=== PATIENT | male | born 1955 | race Two or more races ===

== ENCOUNTER 2024-04-30 19:00 | Inpatient (IN) ==
[2024-04-30 19:44] LABS: ABS Basophils 0.1 10^3/uL (0.0-0.1); ABS Eosinophils 0.1 10^3/uL (0.0-0.5); ABS Neutrophils 17.1 10^3/uL (1.5-7.6); ABS Nucleated RBC 0.01 10^3/ul; Eosinophil % 0.5 %; Hematocrit 41.4 % (38-53); Hemoglobin 13.8 g/dL (13.2-16.3); Lymphocyte % 5.3 %; Mean Corpuscular Hemoglobin 28.1 pg (27-33); Mean Corpuscular Hgb Conc 33.4 g/dL (31-36); Mean Corpuscular Volume 84.2 fL (80-97); Mean Platelet Volume 7.1 fL (7.5-11.2); Platelet Count 351 10^3/uL (150-450); Red Blood Count 4.92 10^6/uL (4.06-5.63); Red Cell Distribution Width 14.6 % (12-17); White Blood Count 19.3 10^3/uL (3.6-10.2)
[2024-04-30 20:13] LABS: Albumin 3.9 g/dL (3.2-5.2); Albumin/Globulin Ratio 1.4 (1-3); C Reactive Protein 20.72 mg/L (<8.01); Calcium 8.9 mg/dL (8.6-10.3); Creatinine, Serum 4.04 mg/dL (0.67-1.17); Globulin 2.8 g/dL (2-4); Potassium 4.7 mmol/L (3.5-5.0); Total Bilirubin 1.1 mg/dL (0.2-1.0); Total Protein 6.7 g/dL (6.4-8.9); eGFR CKD-EPI 15.5 (>60)
[2024-04-30] MEDS: Piperacillin/Tazobac 3.375 BAG 3.375 GM/100 ML BAG IV ONE (20:53)
[2024-04-30] MEDS: Lactated Ringers 1000 ml BAG 1,000 ML IV ONE ×2 (20:54)
[2024-04-30] MEDS: Ondansetron 4 mg VIAL 2 MG/ML 2 ml VIAL IV ONE (21:05)
[2024-04-30 21:15] LABS: High Sensitivity Troponin 1 Hr 10 pg/mL (<20)
[2024-04-30] MEDS: Acetaminophen IV 1 GM/100ML 1,000 MG/100 ML BAG IV ONE (21:31)
[2024-04-30] MEDS: Vancomycin 1,500 MG in NS 0.9% 250 ml 250 ML IVPB ONE (22:06)
[2024-04-30] MEDS: Morphine 4 MG/ML VIAL (1 ml) IV ONE (23:16)
[2024-05-01] MEDS ORDERED: Piperacillin/Tazobac 3.375 BAG 3.375 GM/100 ML BAG IV ONE (00:11)
[2024-05-01] MEDS: ZOSYN 3.375 GM Q12H per EXTENDED INFUSION IV SCH ×2 (00:18→13:07)
[2024-05-01] MEDS ORDERED: Zosyn per Pharmacy NOTE FOLLOW UP SCH (01:00)
[2024-05-01] MEDS: Pantoprazole VIAL 40 MG VIAL IV SCH (01:55)
[2024-05-01] MEDS: Ondansetron 4 mg VIAL 2 MG/ML 2 ml VIAL IV PRN (01:57)
[2024-05-01] MEDS: Sucralfate 1 gm SUSP 1 GM/10 ML UDC PO ONE (01:57)
[2024-05-01] MEDS: Lactated Ringers 1000 ml BAG 1,000 ML IV SCH (01:57)
[2024-05-01] MEDS: Morphine 2 MG/ML SYRINGE IV PRN ×2 (01:57→10:55)
[2024-05-01] MEDS ORDERED: Dextrose 50% Syringe 50 ml 25 GM/50 ML SYRINGE IV PUSH PRN (02:13)
[2024-05-01 03:06] LABS: Albumin 3.4 g/dL (3.2-5.2); Albumin/Globulin Ratio 1.4 (1-3); Calcium 8.4 mg/dL (8.6-10.3); Creatinine, Serum 3.29 mg/dL (0.67-1.17); Globulin 2.5 g/dL (2-4); Potassium 3.9 mmol/L (3.5-5.0); Total Bilirubin 1.4 mg/dL (0.2-1.0); Total Protein 5.9 g/dL (6.4-8.9); eGFR CKD-EPI 19.9 (>60)
[2024-05-01] MEDS: Morphine 2 MG/ML SYRINGE IV ONE (04:23)
[2024-05-01] MEDS: Al Hydrox/Mg Hydrox/Simet LIQ 30 ML UDC PO ONE (04:24)
[2024-05-01 07:16] LABS: Urine Appearance Turbid; Urine Bilirubin Negative (Negative); Urine Blood 1+ (Negative); Urine Color Light-Yellow; Urine Glucose 1+ (>=70 mg/dL) (Negative); Urine Ketones Trace (Negative); Urine Nitrite Negative (Negative); Urine Protein Trace (Negative); Urine Specific Gravity 1.018 (1.002-1.030); Urine Urobilinogen Negative (Negative)
[2024-05-01 07:27] LABS: Urine Bacteria Absent /HPF (Absent); Urine Red Blood Cell 1+(3-5/hpf) /HPF (0-Trace); Urine Squamous Epithelial Cell Present /HPF (Absent); Urine White Blood Cell 3+(>20/hpf) /HPF (0-Trace)
[2024-05-01 09:16] LABS: ABS Basophils 0.1 10^3/uL (0.0-0.1); ABS Eosinophils 0.1 10^3/uL (0.0-0.5); ABS Lymphocytes 1.4 10^3/uL (1.0-4.8); ABS Neutrophils 14.6 10^3/uL (1.5-7.6); Eosinophil % 0.7 %; Hematocrit 36.3 % (38-53); Hemoglobin 12.3 g/dL (13.2-16.3); Lymphocyte % 8.1 %; Mean Corpuscular Hemoglobin 28.2 pg (27-33); Mean Corpuscular Hgb Conc 33.9 g/dL (31-36); Mean Corpuscular Volume 83.3 fL (80-97); Mean Platelet Volume 6.8 fL (7.5-11.2); Platelet Count 230 10^3/uL (150-450); Red Blood Count 4.36 10^6/uL (4.06-5.63); Red Cell Distribution Width 14.2 % (12-17); White Blood Count 17.2 10^3/uL (3.6-10.2)
[2024-05-01 09:58] LABS: Albumin 3.2 g/dL (3.2-5.2); Albumin/Globulin Ratio 1.4 (1-3); Calcium 8.1 mg/dL (8.6-10.3); Creatinine, Serum 2.77 mg/dL (0.67-1.17); Globulin 2.3 g/dL (2-4); Total Bilirubin 1.2 mg/dL (0.2-1.0); Total Protein 5.5 g/dL (6.4-8.9); eGFR CKD-EPI 24.4 (>60)
[2024-05-01] MEDS: NS 0.9% 1000 ml BAG 1,000 ML IV SCH (10:51)
[2024-05-01] MEDS: HYDROmorphone 0.5 MG/0.5 ML SYRINGE IV SLOW PU PRN (18:07)
[2024-05-01] MEDS: HYDROmorphone 0.5 MG/0.5 ML SYRINGE IV SLOW PU ONE (21:07)
[2024-05-02 06:56] LABS: ABS Eosinophils 0.2 10^3/uL (0.0-0.5); ABS Lymphocytes 0.9 10^3/uL (1.0-4.8); ABS Monocytes 1.4 10^3/uL (0.0-1.1); ABS Neutrophils 14.6 10^3/uL (1.5-7.6); Eosinophil % 1.3 %; Hematocrit 34.3 % (38-53); Hemoglobin 11.8 g/dL (13.2-16.3); Lymphocyte % 5.4 %; Mean Corpuscular Hemoglobin 28.7 pg (27-33); Mean Corpuscular Hgb Conc 34.3 g/dL (31-36); Mean Corpuscular Volume 83.7 fL (80-97); Mean Platelet Volume 6.9 fL (7.5-11.2); Platelet Count 188 10^3/uL (150-450); Red Cell Distribution Width 14.5 % (12-17); White Blood Count 17.2 10^3/uL (3.6-10.2)
[2024-05-02 07:06] LABS: Calcium 7.4 mg/dL (8.6-10.3); Creatinine, Serum 1.62 mg/dL (0.67-1.17); Potassium 3.6 mmol/L (3.5-5.0); eGFR CKD-EPI 46.5 (>60)
[2024-05-02 08:19] LABS: Albumin 2.9 g/dL (3.2-5.2); Albumin/Globulin Ratio 1.3 (1-3); Direct Bilirubin 0.4 mg/dL (0.03-0.18); Globulin 2.2 g/dL (2-4); Indirect Bilirubin 0.9 mg/dL (0.3-1.0); Magnesium 1.2 mg/dL (1.9-2.7); Total Bilirubin 1.3 mg/dL (0.2-1.0); Total Protein 5.1 g/dL (6.4-8.9)
[2024-05-02] MEDS: Magnesium Sulf 4 GM/100 ML IV 4,000 MG/100 ML BAG IVPB ONE (11:11)
[2024-05-02] MEDS: KCL 20 MEQ/100 ML IVPREMIX 20 MEQ/100 ML BAG IV SCH (11:12)
[2024-05-02] MEDS: Heparin 5000 UNITS/ML 1 mL VIAL SUBCUT SCH (19:55)
[2024-05-03] MEDS: Lidocaine 2% JELLY 6 ML Topical TOPICAL ONE (04:28)
[2024-05-03 08:18] LABS: ABS Basophils 0.1 10^3/uL (0.0-0.1); ABS Eosinophils 0.6 10^3/uL (0.0-0.5); ABS Lymphocytes 1.1 10^3/uL (1.0-4.8); ABS Neutrophils 11.6 10^3/uL (1.5-7.6); Eosinophil % 4.2 %; Hematocrit 35.5 % (38-53); Lymphocyte % 7.7 %; Mean Corpuscular Hemoglobin 28.4 pg (27-33); Mean Corpuscular Hgb Conc 33.8 g/dL (31-36); Mean Corpuscular Volume 84.2 fL (80-97); Mean Platelet Volume 6.8 fL (7.5-11.2); Platelet Count 197 10^3/uL (150-450); Red Blood Count 4.21 10^6/uL (4.06-5.63); Red Cell Distribution Width 14.5 % (12-17); White Blood Count 14.3 10^3/uL (3.6-10.2)
[2024-05-03 09:12] LABS: Calcium 7.8 mg/dL (8.6-10.3); Creatinine, Serum 1.08 mg/dL (0.67-1.17); Potassium 3.7 mmol/L (3.5-5.0); eGFR CKD-EPI 75.7 (>60)
[2024-05-03] MEDS ORDERED: Pneumococcal 20-Valent Conj 0.5 ML SYR Vaccine IM ONE (10:00)
[2024-05-03] MEDS ORDERED: Influenza Vaccine *TRI* 2024-25* 0.5 ML SYRINGE IM ONE (10:00)
[2024-05-03] MEDS ORDERED: Propofol 10 MG/ML 20 ML BTL ONE (14:17)
[2024-05-03] MEDS ORDERED: Rocuronium 50 mg VIAL 10 mg/ml 5 ml VIAL (50 mg) ONE (14:17)
[2024-05-03] MEDS ORDERED: Lidocaine 2% PF 5 ML VIAL ONE (14:18)
[2024-05-03] MEDS ORDERED: fentaNYL 100 mcg/2 ml 50 MCG/ML VIAL ONE ×4 (14:20→17:26)
[2024-05-03] MEDS ORDERED: Midazolam 2 mg/2 ml VIAL 1 mg/ml 2 ml VIAL (2 mg) ONE ×2 (14:20→15:39)
[2024-05-03] MEDS ORDERED: Bupivacaine 0.25% EPI 200,000 30 ML SDV ONE (15:09)
[2024-05-03] MEDS ORDERED: Dexamethasone IV 4 MG/ML VIAL 1 ml VIAL ONE (15:44)
[2024-05-03] MEDS ORDERED: Ondansetron 4 mg VIAL 2 MG/ML 2 ml VIAL ONE (15:45)
[2024-05-03] MEDS ORDERED: HYDROmorphone 0.5 MG/0.5 ML SYRINGE ONE (16:03)
[2024-05-03] MEDS ORDERED: Phenylephrine 40 mcg/mL 10mL (400mcg) SYRINGE ONE (16:12)
[2024-05-04 06:53] LABS: ABS Lymphocytes 0.4 10^3/uL (1.0-4.8); ABS Monocytes 0.7 10^3/uL (0.0-1.1); ABS Neutrophils 12.6 10^3/uL (1.5-7.6); Hematocrit 34.4 % (38-53); Hemoglobin 11.7 g/dL (13.2-16.3); Lymphocyte % 2.9 %; Mean Corpuscular Hemoglobin 28.6 pg (27-33); Mean Corpuscular Volume 84.1 fL (80-97); Platelet Count 209 10^3/uL (150-450); Red Cell Distribution Width 14.4 % (12-17); White Blood Count 13.8 10^3/uL (3.6-10.2)
[2024-05-04 07:28] LABS: Albumin 2.6 g/dL (3.2-5.2); Albumin/Globulin Ratio 1.2 (1-3); Calcium 7.6 mg/dL (8.6-10.3); Creatinine, Serum 0.93 mg/dL (0.67-1.17); Globulin 2.2 g/dL (2-4); Magnesium 1.4 mg/dL (1.9-2.7); Potassium 3.9 mmol/L (3.5-5.0); Total Bilirubin 0.8 mg/dL (0.2-1.0); Total Protein 4.8 g/dL (6.4-8.9); eGFR CKD-EPI 90.6 (>60)
[2024-05-04] MEDS: Magnesium Sulf 4 GM/100 ML IV 4,000 MG/100 ML BAG IVPB ONE (08:33)
[2024-05-04] MEDS ORDERED: COVID VAC 24-25 (12+) (Moderna) Syringe 0.5 mL IM ONE (10:00)
[2024-05-04] MEDS ORDERED: Pneumococcal 20-Valent Conj 0.5 ML SYR Vaccine IM ONE (16:00)
[2024-05-04] MEDS ORDERED: Influenza Vaccine *TRI* 2024-25* 0.5 ML SYRINGE IM ONE (16:00)
[2024-05-04] MEDS ORDERED: Dextrose 50% Syringe 50 ml 25 GM/50 ML SYRINGE IV PUSH PRN (21:07)
[2024-05-04 22:11] LABS: Creatinine, Serum 1.06 mg/dL (0.67-1.17); Magnesium 2.1 mg/dL (1.9-2.7); Potassium 3.2 mmol/L (3.5-5.0); eGFR CKD-EPI 77.4 (>60)
[2024-05-05 07:25] LABS: Anion Gap 13 mmol/L (2-16); Blood Urea Nitrogen 18 mg/dL (6-24); CO2 Carbon Dioxide 15 mmol/L (22-32); Calcium 7.6 mg/dL (8.6-10.3); Chloride 108 mmol/L (101-111); Glucose 234 mg/dL (70-100); Potassium 3.6 mmol/L (3.5-5.0); Sodium 136 mmol/L (135-145); eGFR CKD-EPI 94.2 (>60)
[2024-05-05 07:42] LABS: ABS Eosinophils 0.1 10^3/uL (0.0-0.5); ABS Monocytes 1.4 10^3/uL (0.0-1.1); ABS Neutrophils 12.8 10^3/uL (1.5-7.6); Eosinophil % 0.6 %; Hematocrit 35.1 % (38-53); Hemoglobin 11.4 g/dL (13.2-16.3); Lymphocyte % 6.5 %; Mean Corpuscular Hemoglobin 28.4 pg (27-33); Mean Corpuscular Hgb Conc 32.5 g/dL (31-36); Mean Corpuscular Volume 87.3 fL (80-97); Mean Platelet Volume 6.6 fL (7.5-11.2); Platelet Count 194 10^3/uL (150-450); Red Blood Count 4.02 10^6/uL (4.06-5.63); Red Cell Distribution Width 15.5 % (12-17); White Blood Count 15.3 10^3/uL (3.6-10.2)
[2024-05-05] MEDS ORDERED: COVID VAC 24-25 (12+) (Moderna) Syringe 0.5 mL IM ONE (10:00)
[2024-05-05] MEDS: Heparin 5000 UNITS/ML 1 mL VIAL SUBCUT SCH (10:23)
[2024-05-05 10:42] LABS: Creatinine, Serum 0.88 mg/dL (0.67-1.17); Potassium 3.4 mmol/L (3.5-5.0)
[2024-05-05 10:43] LABS: Albumin 2.5 g/dL (3.2-5.2); Albumin/Globulin Ratio 1.1 (1-3); Calcium 7.5 mg/dL (8.6-10.3); Globulin 2.2 g/dL (2-4); Total Bilirubin 0.8 mg/dL (0.2-1.0); Total Protein 4.7 g/dL (6.4-8.9); eGFR CKD-EPI 94.8 (>60)
[2024-05-05] MEDS: Potassium Chloride LIQUID 20 MEQ/15 ML LIQUID PO ONE (15:01)
[2024-05-05] MEDS: KCL 20 MEQ/100 ML IVPREMIX 20 MEQ/100 ML BAG IV ONE (17:37)
[2024-05-06 06:20] LABS: ABS Eosinophils 0.3 10^3/uL (0.0-0.5); ABS Lymphocytes 0.8 10^3/uL (1.0-4.8); ABS Monocytes 0.8 10^3/uL (0.0-1.1); ABS Neutrophils 6.5 10^3/uL (1.5-7.6); Eosinophil % 3.2 %; Hematocrit 32.7 % (38-53); Hemoglobin 11.2 g/dL (13.2-16.3); Lymphocyte % 9.9 %; Mean Corpuscular Hemoglobin 28.8 pg (27-33); Mean Corpuscular Hgb Conc 34.2 g/dL (31-36); Mean Corpuscular Volume 84.4 fL (80-97); Mean Platelet Volume 6.4 fL (7.5-11.2); Platelet Count 213 10^3/uL (150-450); Red Blood Count 3.87 10^6/uL (4.06-5.63); Red Cell Distribution Width 14.7 % (12-17); White Blood Count 8.4 10^3/uL (3.6-10.2)
[2024-05-06 06:56] LABS: Albumin 2.5 g/dL (3.2-5.2); Albumin/Globulin Ratio 1.1 (1-3); Calcium 7.4 mg/dL (8.6-10.3); Creatinine, Serum 0.87 mg/dL (0.67-1.17); Globulin 2.2 g/dL (2-4); Magnesium 1.4 mg/dL (1.9-2.7); Potassium 3.7 mmol/L (3.5-5.0); Total Bilirubin 0.8 mg/dL (0.2-1.0); Total Protein 4.7 g/dL (6.4-8.9); eGFR CKD-EPI 95.2 (>60)
[2024-05-06] MEDS ORDERED: Influenza Vaccine *TRI* 2024-25* 0.5 ML SYRINGE IM ONE (09:00)
[2024-05-06] MEDS ORDERED: COVID VAC 24-25 (12+) (Moderna) Syringe 0.5 mL IM ONE (09:00)
[2024-05-06] MEDS ORDERED: Pneumococcal 20-Valent Conj 0.5 ML SYR Vaccine IM ONE (09:00)
[2024-05-06] MEDS: NS 0.9% w/ 40 Meq KCL 1000 ML 1,000 ML IV SCH (10:48)
[2024-05-06] MEDS: Magnesium Sulf 4 GM/100 ML IV 4,000 MG/100 ML BAG IVPB ONE (10:58)
[2024-05-06] MEDS: Acetaminophen IV 1 GM/100ML 1,000 MG/100 ML BAG IV PRN (11:05)
[2024-05-07 07:21] LABS: Albumin 2.3 g/dL (3.2-5.2); Albumin/Globulin Ratio 1.1 (1-3); Calcium 7.2 mg/dL (8.6-10.3); Creatinine, Serum 0.69 mg/dL (0.67-1.17); Globulin 2.1 g/dL (2-4); Potassium 3.9 mmol/L (3.5-5.0); Total Bilirubin 0.6 mg/dL (0.2-1.0); Total Protein 4.4 g/dL (6.4-8.9); eGFR CKD-EPI 102.1 (>60)
[2024-05-07 08:26] LABS: ABS Eosinophils 0.2 10^3/uL (0.0-0.5); ABS Lymphocytes 0.7 10^3/uL (1.0-4.8); ABS Monocytes 0.8 10^3/uL (0.0-1.1); ABS Neutrophils 5.2 10^3/uL (1.5-7.6); Eosinophil % 2.7 %; Hematocrit 30.6 % (38-53); Hemoglobin 10.4 g/dL (13.2-16.3); Lymphocyte % 10.1 %; Mean Corpuscular Hemoglobin 28.8 pg (27-33); Mean Corpuscular Volume 84.5 fL (80-97); Mean Platelet Volume 6.6 fL (7.5-11.2); Platelet Count 188 10^3/uL (150-450); Red Blood Count 3.63 10^6/uL (4.06-5.63); Red Cell Distribution Width 14.8 % (12-17); White Blood Count 6.9 10^3/uL (3.6-10.2)
[2024-05-07] MEDS ORDERED: Pneumococcal 20-Valent Conj 0.5 ML SYR Vaccine IM ONE (09:00)
[2024-05-07] MEDS ORDERED: COVID VAC 24-25 (12+) (Moderna) Syringe 0.5 mL IM ONE (09:00)
[2024-05-07] MEDS ORDERED: Influenza Vaccine *TRI* 2024-25* 0.5 ML SYRINGE IM ONE (09:00)
[2024-05-07] MEDS: NS 0.9% w/ 20 Meq KCL 1000 ml 1,000 ML IV SCH (09:46)
[2024-05-08] MEDS: Morphine 2 MG/ML SYRINGE IV PRN (02:15)
[2024-05-08 06:43] LABS: ABS Eosinophils 0.4 10^3/uL (0.0-0.5); ABS Lymphocytes 0.7 10^3/uL (1.0-4.8); ABS Monocytes 0.5 10^3/uL (0.0-1.1); ABS Neutrophils 2.9 10^3/uL (1.5-7.6); ABS Nucleated RBC 0.01 10^3/ul; Hematocrit 20.1 % (38-53); Hemoglobin 6.8 g/dL (13.2-16.3); Lymphocyte % 14.7 %; Mean Corpuscular Hemoglobin 29.1 pg (27-33); Mean Corpuscular Hgb Conc 33.9 g/dL (31-36); Mean Corpuscular Volume 85.7 fL (80-97); Mean Platelet Volume 5.6 fL (7.5-11.2); Nucleated Red Blood Cells % 0.2 %/100WBC (0.0-0.8); Platelet Count 111 10^3/uL (150-450); Red Blood Count 2.34 10^6/uL (4.06-5.63); Red Cell Distribution Width 14.9 % (12-17); White Blood Count 4.4 10^3/uL (3.6-10.2)
[2024-05-08] MEDS ORDERED: COVID VAC 24-25 (12+) (Moderna) Syringe 0.5 mL IM ONE (10:00)
[2024-05-08 10:08] LABS: Albumin 2.4 g/dL (3.2-5.2); Calcium 7.3 mg/dL (8.6-10.3); Creatinine, Serum 0.57 mg/dL (0.67-1.17); Globulin 2.3 g/dL (2-4); Magnesium 1.4 mg/dL (1.9-2.7); Potassium 3.8 mmol/L (3.5-5.0); Total Bilirubin 0.6 mg/dL (0.2-1.0); Total Protein 4.7 g/dL (6.4-8.9); eGFR CKD-EPI 108.1 (>60)
[2024-05-08] MEDS: Sulfur Hexaflouride MICROSPHR 25 MG VIAL IV PRN (11:09)
[2024-05-08 14:21] LABS: Hematocrit 39.1 % (38-53); Hemoglobin 12.6 g/dL (13.2-16.3); Mean Corpuscular Hemoglobin 28.6 pg (27-33); Mean Corpuscular Hgb Conc 32.1 g/dL (31-36); Mean Corpuscular Volume 89.2 fL (80-97); Mean Platelet Volume 6.2 fL (7.5-11.2); Platelet Count 191 10^3/uL (150-450); Red Blood Count 4.39 10^6/uL (4.06-5.63); Red Cell Distribution Width 16.5 % (12-17); White Blood Count 7.7 10^3/uL (3.6-10.2)
[2024-05-08] MEDS: Pneumococcal 20-Valent Conj 0.5 ML SYR Vaccine IM ONE (15:02)
[2024-05-08] MEDS: Influenza Vaccine *TRI* 2024-25* 0.5 ML SYRINGE IM ONE (15:04)
[2024-05-08] MEDS: Magnesium Sulf 4 GM/100 ML IV 4,000 MG/100 ML BAG IVPB ONE (15:20)
[2024-05-09 06:24] LABS: ABS Eosinophils 0.7 10^3/uL (0.0-0.5); ABS Lymphocytes 1.2 10^3/uL (1.0-4.8); ABS Neutrophils 5.6 10^3/uL (1.5-7.6); Eosinophil % 8.3 %; Hematocrit 33.5 % (38-53); Hemoglobin 11.5 g/dL (13.2-16.3); Lymphocyte % 13.8 %; Mean Corpuscular Hemoglobin 29.1 pg (27-33); Mean Corpuscular Hgb Conc 34.2 g/dL (31-36); Mean Platelet Volume 6.2 fL (7.5-11.2); Platelet Count 184 10^3/uL (150-450); Red Blood Count 3.94 10^6/uL (4.06-5.63); Red Cell Distribution Width 15.4 % (12-17); White Blood Count 8.5 10^3/uL (3.6-10.2)
[2024-05-09 06:41] LABS: Calcium 7.1 mg/dL (8.6-10.3); Creatinine, Serum 0.54 mg/dL (0.67-1.17); Magnesium 1.7 mg/dL (1.9-2.7); Potassium 3.3 mmol/L (3.5-5.0); eGFR CKD-EPI 109.9 (>60)
[2024-05-09 12:40] LABS: INR 1.89 (0.85-1.14)
[2024-05-09] MEDS: Magnesium Sulfate 2 gm BAG 2 GM/50 ML BAG IVPB ONE (15:25)
[2024-05-09] MEDS: Potassium Chlor 20 meq TAB.ER PO ONE (15:25)
[2024-05-09] MEDS: Magnesium Sulfate IV 1GM/100ML 1 GM/100 ML BAG IV ONE (17:52)
[2024-05-10 06:07] LABS: ABS Eosinophils 0.6 10^3/uL (0.0-0.5); ABS Lymphocytes 1.4 10^3/uL (1.0-4.8); ABS Monocytes 0.8 10^3/uL (0.0-1.1); ABS Neutrophils 6.1 10^3/uL (1.5-7.6); ABS Nucleated RBC 0.01 10^3/ul; Eosinophil % 6.3 %; Hemoglobin 12.1 g/dL (13.2-16.3); Lymphocyte % 15.6 %; Mean Corpuscular Hemoglobin 29.1 pg (27-33); Mean Corpuscular Hgb Conc 33.7 g/dL (31-36); Mean Corpuscular Volume 86.2 fL (80-97); Mean Platelet Volume 6.4 fL (7.5-11.2); Nucleated Red Blood Cells % 0.1 %/100WBC (0.0-0.8); Platelet Count 221 10^3/uL (150-450); Red Blood Count 4.17 10^6/uL (4.06-5.63); Red Cell Distribution Width 15.6 % (12-17)
[2024-05-10 06:24] LABS: Calcium 7.3 mg/dL (8.6-10.3); Creatinine, Serum 0.61 mg/dL (0.67-1.17); HDL Cholesterol 14.3 mg/dL; Magnesium 1.7 mg/dL (1.9-2.7); Potassium 3.6 mmol/L (3.5-5.0); eGFR CKD-EPI 105.9 (>60)
[2024-05-10] MEDS ORDERED: niCARdipine 0.1MG/ML IVPREMIX 20 MG/200 ML BAG IV ONE (09:56)
[2024-05-10] MEDS ORDERED: Heparin 1,000 UNIT/ML 10 ml (10,000 UNITS) CATHLAB/DIALYSIS ONE (09:56)
[2024-05-10] MEDS ORDERED: Heparin 2 UNITS/ML 1000 mls 2,000 ML IV ONE (09:56)
[2024-05-10] MEDS ORDERED: Lidocaine 1% VIAL 10 MG/ML 30 ML VIAL ONE (09:56)
[2024-05-10] MEDS ORDERED: Midazolam 5 mg/5 ml VIAL 1 mg/ml 5 ml VIAL (5 mg) ONE (09:56)
[2024-05-10] MEDS ORDERED: fentaNYL 100 mcg/2 ml 50 MCG/ML VIAL ONE (09:56)
[2024-05-10] MEDS ORDERED: nitroGLYCERIN DRIP 25,000 MCG/250 ML BTL ONE (09:57)
[2024-05-10] MEDS ORDERED: Iohexol 350 (CONTRAST) 200 ML MDV IV ONE (09:57)
[2024-05-10] MEDS: ZOSYN 3.375 GM Q12H per EXTENDED INFUSION IV SCH (15:53)
[2024-05-10] MEDS: Potassium Chlor 10 meq TAB PO ONE (16:18)
[2024-05-10] MEDS: NS 0.9% 1000 ml BAG 1,000 ML IV SCH (16:51)
[2024-05-10] MEDS: Magnesium Sulfate 2 gm BAG 2 GM/50 ML BAG IVPB ONE ×2 (21:08→22:42)
[2024-05-10] MEDS: Magnesium Sulfate IV 1GM/100ML 1 GM/100 ML BAG IV ONE (21:09)
[2024-05-11] MEDS: Magnesium Sulfate IV 1GM/100ML 1 GM/100 ML BAG IV ONE (00:04)
[2024-05-11] MEDS: COVID VAC 24-25 (12+) (Moderna) Syringe 0.5 mL IM ONE (07:29)
[2024-05-11] MEDS ORDERED: COVID VAC 24-25 (12+) (Moderna) Syringe 0.5 mL IM ONE (09:00)
[2024-05-11] MEDS: Morphine 2 MG/ML SYRINGE IV PRN (09:16)
[2024-05-11 09:55] LABS: Hematocrit 36.2 % (38-53); Mean Corpuscular Hemoglobin 28.7 pg (27-33); Mean Corpuscular Hgb Conc 33.2 g/dL (31-36); Mean Corpuscular Volume 86.3 fL (80-97); Mean Platelet Volume 6.3 fL (7.5-11.2); Platelet Count 273 10^3/uL (150-450); Red Cell Distribution Width 15.6 % (12-17); White Blood Count 9.7 10^3/uL (3.6-10.2)
[2024-05-11 10:05] LABS: Anion Gap 5 mmol/L (2-16); Blood Urea Nitrogen 5 mg/dL (6-24); CO2 Carbon Dioxide 24 mmol/L (22-32); Calcium 7.5 mg/dL (8.6-10.3); Chloride 105 mmol/L (101-111); Creatinine, Serum 0.64 mg/dL (0.67-1.17); Glucose 150 mg/dL (70-100); Magnesium 2.2 mg/dL (1.9-2.7); Sodium 134 mmol/L (135-145); eGFR CKD-EPI 104.4 (>60)
[2024-05-11 10:11] LABS: Potassium, Whole Blood 3.7 mmol/L (3.4-4.5)
[2024-05-11] MEDS: Potassium Chlor 20 meq TAB.ER PO ONE (12:03)
[2024-05-12 06:53] LABS: ABS Eosinophils 0.5 10^3/uL (0.0-0.5); ABS Lymphocytes 1.3 10^3/uL (1.0-4.8); ABS Monocytes 0.8 10^3/uL (0.0-1.1); ABS Neutrophils 4.6 10^3/uL (1.5-7.6); Eosinophil % 6.5 %; Hemoglobin 11.4 g/dL (13.2-16.3); Mean Corpuscular Hemoglobin 29.7 pg (27-33); Mean Corpuscular Hgb Conc 34.6 g/dL (31-36); Mean Corpuscular Volume 85.8 fL (80-97); Mean Platelet Volume 6.1 fL (7.5-11.2); Platelet Count 261 10^3/uL (150-450); Red Blood Count 3.84 10^6/uL (4.06-5.63); Red Cell Distribution Width 15.7 % (12-17); White Blood Count 7.3 10^3/uL (3.6-10.2)
[2024-05-12 07:06] LABS: Calcium 7.4 mg/dL (8.6-10.3); Creatinine, Serum 0.72 mg/dL (0.67-1.17); Magnesium 1.6 mg/dL (1.9-2.7); Potassium 3.7 mmol/L (3.5-5.0); eGFR CKD-EPI 100.8 (>60)
[2024-05-12] MEDS: Potassium Chlor 20 meq TAB.ER PO ONE (09:13)
[2024-05-12] MEDS: Magnesium Sulfate 2 gm BAG 2 GM/50 ML BAG IVPB ONE (09:31)
[2024-05-12] MEDS: Magnesium Sulfate IV 1GM/100ML 1 GM/100 ML BAG IV ONE (11:23)
[2024-05-12 13:03] LABS: TSH Ultra Thyroid Stim Horm 1.08 mcIU/mL (0.34-5.60)
[2024-05-12 13:09] LABS: Ferritin 231.2 ng/mL (24-336)
[2024-05-12] MEDS: COVID VAC 24-25 (12+) (Moderna) Syringe 0.5 mL IM ONE (14:52)
[2024-05-13 06:19] LABS: ABS Basophils 0.1 10^3/uL (0.0-0.1); ABS Eosinophils 0.4 10^3/uL (0.0-0.5); ABS Lymphocytes 1.4 10^3/uL (1.0-4.8); ABS Monocytes 0.8 10^3/uL (0.0-1.1); ABS Neutrophils 4.6 10^3/uL (1.5-7.6); Eosinophil % 6.2 %; Hematocrit 29.6 % (38-53); Hemoglobin 10.3 g/dL (13.2-16.3); Lymphocyte % 19.1 %; Mean Corpuscular Hemoglobin 29.9 pg (27-33); Mean Corpuscular Hgb Conc 34.9 g/dL (31-36); Mean Corpuscular Volume 85.6 fL (80-97); Mean Platelet Volume 6.1 fL (7.5-11.2); Platelet Count 279 10^3/uL (150-450); Red Blood Count 3.46 10^6/uL (4.06-5.63); Red Cell Distribution Width 15.5 % (12-17); White Blood Count 7.2 10^3/uL (3.6-10.2)
[2024-05-13 06:36] LABS: Calcium 7.6 mg/dL (8.6-10.3); Creatinine, Serum 0.65 mg/dL (0.67-1.17); Magnesium 1.7 mg/dL (1.9-2.7); Potassium 4.2 mmol/L (3.5-5.0); eGFR CKD-EPI 103.9 (>60)
[2024-05-13] MEDS: Furosemide 20 mg/2 ml IV VIAL IV ONE (13:59)
[2024-05-14] MEDS: Furosemide 20 mg/2 ml IV VIAL IV ONE (14:36)
[2024-05-15 12:35] LABS: Creatinine, Serum 0.74 mg/dL (0.67-1.17); Magnesium 1.4 mg/dL (1.9-2.7); eGFR CKD-EPI 99.9 (>60)
[2024-05-15] MEDS: Magnesium Sulf 4 GM/100 ML IV 4,000 MG/100 ML BAG IVPB ONE (20:17)
[2024-05-17 08:50] LABS: ABS Basophils 0.1 10^3/uL (0.0-0.1); ABS Eosinophils 0.5 10^3/uL (0.0-0.5); ABS Lymphocytes 1.4 10^3/uL (1.0-4.8); ABS Monocytes 0.7 10^3/uL (0.0-1.1); ABS Neutrophils 3.9 10^3/uL (1.5-7.6); Eosinophil % 7.1 %; Hematocrit 33.5 % (38-53); Hemoglobin 11.4 g/dL (13.2-16.3); Lymphocyte % 21.9 %; Mean Corpuscular Hemoglobin 29.2 pg (27-33); Mean Corpuscular Hgb Conc 34.1 g/dL (31-36); Mean Corpuscular Volume 85.8 fL (80-97); Mean Platelet Volume 5.8 fL (7.5-11.2); Platelet Count 472 10^3/uL (150-450); Red Blood Count 3.91 10^6/uL (4.06-5.63); Red Cell Distribution Width 15.4 % (12-17); White Blood Count 6.5 10^3/uL (3.6-10.2)
[2024-05-17 09:23] LABS: Calcium 8.2 mg/dL (8.6-10.3); Creatinine, Serum 0.72 mg/dL (0.67-1.17); Magnesium 1.8 mg/dL (1.9-2.7); Potassium 4.6 mmol/L (3.5-5.0); eGFR CKD-EPI 100.8 (>60)
[2024-05-17] MEDS: Magnesium Sulfate 2 gm BAG 2 GM/50 ML BAG IVPB ONE (12:00)
[2024-05-18 10:52] VITALS: BP 119/69
== END 2024-05-18 16:30 | disposition home health service (06) | DRG 854 ==
LOC: EDHOLD 19:00 → ED 19:00 → OBSVTOIN 05-01 00:06 → SUATTDRO 05-01 00:06 → MEDTELE 05-01 15:00
PROVIDERS: ADMIT Internal Medicine; ATTEND Internal Medicine